=== PATIENT | male | born 1945 | race Caucasian/White ===

== ENCOUNTER 2019-09-10 16:21 | Inpatient (IN) | payer MEDICARE, OTHER ==
[~2019-09-10] VITALS: Ht 177.8 cm; Wt 196.0 kg
[2019-09-10 16:40] VITALS: BP 158/83
[2019-09-10] MEDS: INSULIN LISPRO 100 UNITS/ML SQ SCH (17:45)
[2019-09-10] MEDS ORDERED: DEXTROSE 50%-WATER 25 GM/50 ML SYRINGE IVP PRN (17:45)
[2019-09-10 18:33] VITALS: BP 137/75
[2019-09-10 18:52] LABS: GLUCOMETER DEV NAME(LOC) 2WR.1C; GLUCOSE,POINT OF CARE 52 MG/DL (70-110)
[2019-09-10 19:27] LABS: GLUCOMETER DEV NAME(LOC) 2WR.2; GLUCOSE,POINT OF CARE 158 MG/DL (70-110)
[2019-09-10] MEDS ORDERED: INSULIN GLARGINE,HUM.REC.ANLOG 100 UNITS/ML SQ SCH (21:30)
[2019-09-10] MEDS ORDERED: ACETAMINOPHEN 325 MG TABLET PO PRN (21:45)
[2019-09-10] MEDS: SENNA 187 MG TABLET PO SCH (21:45)
[2019-09-10] MEDS: DOCUSATE SODIUM 100 MG CAPSULE PO SCH (22:00)
[2019-09-10] MEDS: INSULIN LISPRO 100 UNITS/ML SQ PRN (22:08)
[2019-09-10] MEDS: TAMSULOSIN HCL 0.4 MG CAPSULE PO SCH (22:09)
[2019-09-10] MEDS: PREGABALIN 75 MG CAPSULE PO SCH (22:09)
[2019-09-10 22:15] LABS: GLUCOMETER DEV NAME(LOC) 2WR.1C; GLUCOSE,POINT OF CARE 239 MG/DL (70-110)
[2019-09-10] MEDS: EZETIMIBE 10 MG TABLET PO SCH (22:31)
[2019-09-11 04:20] VITALS: BP 120/62
[2019-09-11 06:09] LABS: GLUCOMETER DEV NAME(LOC) 2WR.1C; GLUCOSE,POINT OF CARE 111 MG/DL (70-110)
[2019-09-11 06:58] LABS: BASOPHILS % (AUTO) 0.9 % (0.0-2.0); EOSINOPHILS % (AUTO) 4.8 % (1.0-6.0); HEMATOCRIT 39.2 % (41-53); HEMOGLOBIN 13.2 g/dL (13.5-17.5); LYMPHOCYTES # (AUTO) 1.7 K/uL (1.0-4.8); LYMPHOCYTES % (AUTO) 30.7 % (22.0-44.0); MEAN CORPUSCULAR HEMOGLOBIN 30.4 pg (26.0-34.0); MEAN CORPUSCULAR HGB CONC 33.6 G/dL (31.0-37.0); MEAN CORPUSCULAR VOLUME 90 fL (80-100); MONOCYTES # (AUTO) 0.3 K/uL (0.1-1.0); MONOCYTES % (AUTO) 5.9 % (2.0-9.0); NEUTROPHILS # (AUTO) 3.1 K/uL (1.8-7.7); NEUTROPHILS % (AUTO) 57.7 % (40.0-70.0); PLATELET COUNT (AUTO) 195 K/uL (150-450); RED BLOOD CELL COUNT(AUTO) 4.34 MIL/uL (4.50-5.90); RED CELL DISTRIBUTION WIDTH 14.4 % (11.5-14.5)
[2019-09-11 07:07] VITALS: BP 125/73
[2019-09-11 07:13] LABS: ALANINE AMINOTRANSFERASE 221 U/L (12-78); ALKALINE PHOSPHATASE 84 U/L (46-116); ANION GAP 4 mmol/L (8-16); ASPARTATE AMINOTRANSFERASE 237 U/L (15-37); BILIRUBIN,TOTAL 0.4 mg/dL (0.1-1.0); CALCIUM, TOTAL 8.9 mg/dL (8.8-10.5); CARBON DIOXIDE 31 mmol/L (22-29); CHLORIDE 104 mmol/L (98-107); CREATININE 0.73 mg/dL (0.60-1.30); GLUCOSE,RANDOM 100 mg/dL (70-110); POTASSIUM 3.9 mmol/L (3.5-5.1); SODIUM SERUM 139 mmol/L (136-145); TOTAL PROTEIN, SERUM 6.5 g/dL (6.4-8.2); UREA NITROGEN, BLOOD 18 mg/dL (7-18)
[2019-09-11 07:14] LABS: GLOMERULAR FILTR. RATE CALC > 60 mL/min (>60)
[2019-09-11] MEDS: PREGABALIN 75 MG CAPSULE PO SCH ×2 (07:58→20:34)
[2019-09-11] MEDS: FLUDROCORTISONE ACETATE 0.1 MG TABLET PO SCH (07:59)
[2019-09-11] MEDS: MetFORMIN HCL 500 MG TABLET PO SCH ×2 (07:59→17:18)
[2019-09-11] MEDS: MIDODRINE HCL 5 MG TABLET PO SCH ×3 (07:59→20:35)
[2019-09-11] MEDS: ASPIRIN 81 MG CHEWABLE TABLET PO SCH (07:59)
[2019-09-11] MEDS: DOCUSATE SODIUM 100 MG CAPSULE PO SCH ×2 (07:59→20:34)
[2019-09-11] MEDS: FLUTICASONE PROPIONATE 50 MCG/SPRAY 16 GM NASAL SPRAY NASAL SCH (07:59)
[2019-09-11] MEDS: INSULIN LISPRO 100 UNITS/ML SQ SCH ×2 (08:07→17:26)
[2019-09-11] MEDS: FLUOCINONIDE 0.05% 15 GM CREAM TP SCH ×2 (08:07→20:55)
[2019-09-11] MEDS: DESONIDE 0.05% 15 GM CREAM TP SCH ×2 (08:08→20:33)
[2019-09-11] MEDS ORDERED: DOCUSATE SODIUM 100 MG/10 ML LIQUID UDCUP PO SCH (09:00)
[2019-09-11 12:19] LABS: GLUCOMETER DEV NAME(LOC) 2WR.2; GLUCOSE,POINT OF CARE 63 MG/DL (70-110)
[2019-09-11 12:47] LABS: GLUCOMETER DEV NAME(LOC) 2WR.2; GLUCOSE,POINT OF CARE 95 MG/DL (70-110)
[2019-09-11 16:00] VITALS: BP 118/63
[2019-09-11] MEDS: TAMSULOSIN HCL 0.4 MG CAPSULE PO SCH (20:33)
[2019-09-11] MEDS: INSULIN GLARGINE,HUM.REC.ANLOG 100 UNITS/ML SQ SCH (20:46)
[2019-09-11] MEDS: INSULIN LISPRO 100 UNITS/ML SQ PRN (20:54)
[2019-09-11] MEDS: SENNA 187 MG TABLET PO SCH (20:56)
[2019-09-11] MEDS: EZETIMIBE 10 MG TABLET PO SCH (20:56)
[2019-09-11 21:39] LABS: GLUCOMETER DEV NAME(LOC) 2WR.1C; GLUCOSE,POINT OF CARE 134 MG/DL (70-110)
[2019-09-11 21:45] LABS: GLUCOMETER DEV NAME(LOC) 2WR.2; GLUCOSE,POINT OF CARE 224 MG/DL (70-110)
[2019-09-11 23:44] VITALS: BP 120/63
[2019-09-12 06:26] LABS: GLUCOMETER DEV NAME(LOC) 2WR.1C; GLUCOSE,POINT OF CARE 110 MG/DL (70-110)
[2019-09-12] MEDS: MetFORMIN HCL 500 MG TABLET PO SCH ×2 (07:49→17:09)
[2019-09-12] MEDS: INSULIN LISPRO 100 UNITS/ML SQ SCH ×3 (07:54→17:44)
[2019-09-12 07:57] VITALS: BP 147/66
[2019-09-12] MEDS: MIDODRINE HCL 5 MG TABLET PO SCH ×3 (08:29→20:15)
[2019-09-12] MEDS: ASPIRIN 81 MG CHEWABLE TABLET PO SCH (08:29)
[2019-09-12] MEDS: FLUDROCORTISONE ACETATE 0.1 MG TABLET PO SCH (08:29)
[2019-09-12] MEDS: FLUTICASONE PROPIONATE 50 MCG/SPRAY 16 GM NASAL SPRAY NASAL SCH (08:30)
[2019-09-12] MEDS: PREGABALIN 75 MG CAPSULE PO SCH ×2 (08:30→20:14)
[2019-09-12] MEDS: DOCUSATE SODIUM 100 MG CAPSULE PO SCH ×3 (08:32→20:27)
[2019-09-12] MEDS: FLUOCINONIDE 0.05% 15 GM CREAM TP SCH ×2 (08:35→20:15)
[2019-09-12] MEDS: DESONIDE 0.05% 15 GM CREAM TP SCH ×2 (08:35→20:15)
[2019-09-12] MEDS ORDERED: FLUT16H NASAL (13:46)
[2019-09-12] MEDS ORDERED: LISI-662 PO (13:46)
[2019-09-12] MEDS ORDERED: METF-960 PO (13:46)
[2019-09-12] MEDS ORDERED: PREG75 PO (13:46)
[2019-09-12 15:38] VITALS: BP 117/64
[2019-09-12 16:31] LABS: GLUCOMETER DEV NAME(LOC) 2WR.1C; GLUCOSE,POINT OF CARE 86 MG/DL (70-110)
[2019-09-12 18:37] LABS: GLUCOMETER DEV NAME(LOC) 2WR.1C; GLUCOSE,POINT OF CARE 107 MG/DL (70-110)
[2019-09-12] MEDS: TAMSULOSIN HCL 0.4 MG CAPSULE PO SCH (20:14)
[2019-09-12] MEDS: SENNA 187 MG TABLET PO SCH ×2 (20:15→20:28)
[2019-09-12] MEDS: EZETIMIBE 10 MG TABLET PO SCH (20:15)
[2019-09-12] MEDS: INSULIN LISPRO 100 UNITS/ML SQ PRN (20:17)
[2019-09-12] MEDS: INSULIN GLARGINE,HUM.REC.ANLOG 100 UNITS/ML SQ SCH (20:18)
[2019-09-12 20:30] VITALS: BP 136/69
[2019-09-12] MEDS: MELATONIN 3 MG TABLET PO PRN (21:08)
[2019-09-12 22:57] LABS: GLUCOMETER DEV NAME(LOC) 2WR.1C; GLUCOSE,POINT OF CARE 168 MG/DL (70-110)
[2019-09-13 00:14] VITALS: BP 119/69
[2019-09-13 06:30] LABS: GLUCOMETER DEV NAME(LOC) 2WR.2; GLUCOSE,POINT OF CARE 76 MG/DL (70-110)
[2019-09-13] MEDS: INSULIN LISPRO 100 UNITS/ML SQ SCH ×3 (07:00→18:29)
[2019-09-13 07:25] VITALS: BP 115/72
[2019-09-13] MEDS: PREGABALIN 75 MG CAPSULE PO SCH ×2 (07:50→20:14)
[2019-09-13] MEDS: ASPIRIN 81 MG CHEWABLE TABLET PO SCH (07:50)
[2019-09-13] MEDS: MetFORMIN HCL 500 MG TABLET PO SCH ×2 (07:50→16:56)
[2019-09-13] MEDS: DOCUSATE SODIUM 100 MG CAPSULE PO SCH ×2 (07:50→20:14)
[2019-09-13] MEDS: MIDODRINE HCL 5 MG TABLET PO SCH ×3 (07:51→20:14)
[2019-09-13] MEDS: FLUTICASONE PROPIONATE 50 MCG/SPRAY 16 GM NASAL SPRAY NASAL SCH (07:51)
[2019-09-13] MEDS: FLUDROCORTISONE ACETATE 0.1 MG TABLET PO SCH (07:52)
[2019-09-13] MEDS: FLUOCINONIDE 0.05% 15 GM CREAM TP SCH ×2 (07:52→20:14)
[2019-09-13] MEDS: DESONIDE 0.05% 15 GM CREAM TP SCH ×2 (07:52→20:14)
[2019-09-13 15:43] VITALS: BP 137/72
[2019-09-13 17:31] LABS: GLUCOMETER DEV NAME(LOC) 2WR.1C; GLUCOSE,POINT OF CARE 121 MG/DL (70-110)
[2019-09-13 17:40] LABS: GLUCOMETER DEV NAME(LOC) 2WR.2; GLUCOSE,POINT OF CARE 87 MG/DL (70-110)
[2019-09-13] MEDS: EZETIMIBE 10 MG TABLET PO SCH (20:14)
[2019-09-13] MEDS: TAMSULOSIN HCL 0.4 MG CAPSULE PO SCH (20:14)
[2019-09-13] MEDS: SENNA 187 MG TABLET PO SCH (20:14)
[2019-09-13] MEDS: MELATONIN 3 MG TABLET PO PRN (20:16)
[2019-09-13] MEDS: INSULIN GLARGINE,HUM.REC.ANLOG 100 UNITS/ML SQ SCH (20:22)
[2019-09-13 22:19] LABS: GLUCOMETER DEV NAME(LOC) 2WR.2; GLUCOSE,POINT OF CARE 92 MG/DL (70-110)
[2019-09-14 04:00] VITALS: BP 136/67
[2019-09-14 07:07] LABS: GLUCOMETER DEV NAME(LOC) 2WR.2; GLUCOSE,POINT OF CARE 64 MG/DL (70-110)
[2019-09-14 07:07] LABS: GLUCOMETER DEV NAME(LOC) 2WR.2; GLUCOSE,POINT OF CARE 53 MG/DL (70-110)
[2019-09-14 07:07] LABS: GLUCOMETER DEV NAME(LOC) 2WR.2; GLUCOSE,POINT OF CARE 62 MG/DL (70-110)
[2019-09-14] MEDS: FLUDROCORTISONE ACETATE 0.1 MG TABLET PO SCH (08:09)
[2019-09-14] MEDS: DESONIDE 0.05% 15 GM CREAM TP SCH ×2 (08:09→20:49)
[2019-09-14] MEDS: MetFORMIN HCL 500 MG TABLET PO SCH ×2 (08:09→17:05)
[2019-09-14] MEDS: FLUTICASONE PROPIONATE 50 MCG/SPRAY 16 GM NASAL SPRAY NASAL SCH (08:09)
[2019-09-14] MEDS: FLUOCINONIDE 0.05% 15 GM CREAM TP SCH ×2 (08:09→20:49)
[2019-09-14] MEDS: DOCUSATE SODIUM 100 MG CAPSULE PO SCH ×2 (08:10→20:49)
[2019-09-14] MEDS: MIDODRINE HCL 5 MG TABLET PO SCH ×4 (08:10→20:49)
[2019-09-14] MEDS: ASPIRIN 81 MG CHEWABLE TABLET PO SCH (08:10)
[2019-09-14] MEDS: PREGABALIN 75 MG CAPSULE PO SCH ×2 (08:10→20:44)
[2019-09-14] MEDS: INSULIN LISPRO 100 UNITS/ML SQ SCH ×2 (08:31→18:02)
[2019-09-14] MEDS: INSULIN LISPRO 100 UNITS/ML SQ PRN ×3 (08:31→20:49)
[2019-09-14 09:00] VITALS: BP 129/60
[2019-09-14 13:19] LABS: GLUCOMETER DEV NAME(LOC) 2WR.2; GLUCOSE,POINT OF CARE 180 MG/DL (70-110)
[2019-09-14 13:19] LABS: GLUCOMETER DEV NAME(LOC) 2WR.2; GLUCOSE,POINT OF CARE 103 MG/DL (70-110)
[2019-09-14 15:58] VITALS: BP 131/73
[2019-09-14 17:57] LABS: GLUCOMETER DEV NAME(LOC) 2WR.1C; GLUCOSE,POINT OF CARE 189 MG/DL (70-110)
[2019-09-14 20:30] VITALS: BP 130/77
[2019-09-14] MEDS: EZETIMIBE 10 MG TABLET PO SCH (20:44)
[2019-09-14] MEDS: MELATONIN 3 MG TABLET PO PRN (20:44)
[2019-09-14] MEDS: TAMSULOSIN HCL 0.4 MG CAPSULE PO SCH (20:45)
[2019-09-14] MEDS: INSULIN GLARGINE,HUM.REC.ANLOG 100 UNITS/ML SQ SCH (20:48)
[2019-09-14] MEDS: SENNA 187 MG TABLET PO SCH (20:49)
[2019-09-15 01:10] VITALS: BP 112/69
[2019-09-15 05:46] LABS: GLUCOMETER DEV NAME(LOC) 2WR.1C; GLUCOSE,POINT OF CARE 179 MG/DL (70-110)
[2019-09-15 05:52] LABS: GLUCOMETER DEV NAME(LOC) 2WR.1C; GLUCOSE,POINT OF CARE 75 MG/DL (70-110)
[2019-09-15 07:46] VITALS: BP 138/76
[2019-09-15] MEDS: MetFORMIN HCL 500 MG TABLET PO SCH ×2 (07:57→18:13)
[2019-09-15] MEDS: ASPIRIN 81 MG CHEWABLE TABLET PO SCH (07:57)
[2019-09-15] MEDS: PREGABALIN 75 MG CAPSULE PO SCH ×2 (07:57→20:36)
[2019-09-15] MEDS: FLUTICASONE PROPIONATE 50 MCG/SPRAY 16 GM NASAL SPRAY NASAL SCH (07:57)
[2019-09-15] MEDS: FLUDROCORTISONE ACETATE 0.1 MG TABLET PO SCH (07:58)
[2019-09-15] MEDS: INSULIN LISPRO 100 UNITS/ML SQ SCH ×3 (08:02→16:30)
[2019-09-15] MEDS: DOCUSATE SODIUM 100 MG CAPSULE PO SCH ×2 (08:03→21:00)
[2019-09-15] MEDS: FLUOCINONIDE 0.05% 15 GM CREAM TP SCH ×2 (08:04→21:00)
[2019-09-15] MEDS: DESONIDE 0.05% 15 GM CREAM TP SCH ×2 (08:04→21:00)
[2019-09-15] MEDS: MIDODRINE HCL 5 MG TABLET PO SCH ×3 (09:00→21:00)
[2019-09-15 10:30] VITALS: BP 124/73
[2019-09-15 12:51] LABS: GLUCOMETER DEV NAME(LOC) 2WR.2; GLUCOSE,POINT OF CARE 103 MG/DL (70-110)
[2019-09-15 16:58] VITALS: BP 130/78
[2019-09-15 20:00] LABS: GLUCOMETER DEV NAME(LOC) 2WR.2; GLUCOSE,POINT OF CARE 55 MG/DL (70-110)
[2019-09-15 20:00] LABS: GLUCOMETER DEV NAME(LOC) 2WR.2; GLUCOSE,POINT OF CARE 157 MG/DL (70-110)
[2019-09-15 20:00] LABS: GLUCOMETER DEV NAME(LOC) 2WR.2; GLUCOSE,POINT OF CARE 54 MG/DL (70-110)
[2019-09-15] MEDS: TAMSULOSIN HCL 0.4 MG CAPSULE PO SCH (20:35)
[2019-09-15] MEDS: EZETIMIBE 10 MG TABLET PO SCH (20:36)
[2019-09-15] MEDS: SENNA 187 MG TABLET PO SCH (21:00)
[2019-09-15] MEDS: INSULIN GLARGINE,HUM.REC.ANLOG 100 UNITS/ML SQ SCH (21:02)
[2019-09-15 21:43] LABS: GLUCOMETER DEV NAME(LOC) 2WR.2; GLUCOSE,POINT OF CARE 125 MG/DL (70-110)
[2019-09-16] VITALS: BP 128/71
[2019-09-16 07:02] LABS: GLUCOMETER DEV NAME(LOC) 2WR.2; GLUCOSE,POINT OF CARE 69 MG/DL (70-110)
[2019-09-16 07:38] VITALS: BP 121/71
[2019-09-16] MEDS: FLUTICASONE PROPIONATE 50 MCG/SPRAY 16 GM NASAL SPRAY NASAL SCH (08:14)
[2019-09-16] MEDS: MetFORMIN HCL 500 MG TABLET PO SCH ×2 (08:15→17:09)
[2019-09-16] MEDS: MIDODRINE HCL 5 MG TABLET PO SCH (08:15)
[2019-09-16] MEDS: DOCUSATE SODIUM 100 MG CAPSULE PO SCH ×2 (08:15→20:58)
[2019-09-16] MEDS: PREGABALIN 75 MG CAPSULE PO SCH ×2 (08:15→20:54)
[2019-09-16] MEDS: FLUDROCORTISONE ACETATE 0.1 MG TABLET PO SCH (08:15)
[2019-09-16] MEDS: ASPIRIN 81 MG CHEWABLE TABLET PO SCH (08:16)
[2019-09-16] MEDS: DESONIDE 0.05% 15 GM CREAM TP SCH (08:19)
[2019-09-16] MEDS: INSULIN LISPRO 100 UNITS/ML SQ SCH ×3 (08:19→18:15)
[2019-09-16] MEDS: FLUOCINONIDE 0.05% 15 GM CREAM TP SCH (08:19)
[2019-09-16 12:20] LABS: GLUCOMETER DEV NAME(LOC) 2WR.2; GLUCOSE,POINT OF CARE 54 MG/DL (70-110)
[2019-09-16 12:20] LABS: GLUCOMETER DEV NAME(LOC) 2WR.2; GLUCOSE,POINT OF CARE 40 MG/DL (70-110)
[2019-09-16 13:22] LABS: GLUCOMETER DEV NAME(LOC) 2WR.2; GLUCOSE,POINT OF CARE 94 MG/DL (70-110)
[2019-09-16] MEDS ORDERED: MIDODRINE HCL 5 MG TABLET PO PRN (13:45)
[2019-09-16] MEDS ORDERED: FLUOCINONIDE 0.05% 15 GM CREAM TP PRN (13:45)
[2019-09-16] MEDS ORDERED: DESONIDE 0.05% 15 GM CREAM TP PRN (13:45)
[2019-09-16 15:20] VITALS: BP 143/79
[2019-09-16 17:43] LABS: GLUCOMETER DEV NAME(LOC) 2WR.2; GLUCOSE,POINT OF CARE 151 MG/DL (70-110)
[2019-09-16] MEDS: TAMSULOSIN HCL 0.4 MG CAPSULE PO SCH (20:54)
[2019-09-16] MEDS: EZETIMIBE 10 MG TABLET PO SCH (20:54)
[2019-09-16] MEDS: SENNA 187 MG TABLET PO SCH (20:58)
[2019-09-16] MEDS: INSULIN GLARGINE,HUM.REC.ANLOG 100 UNITS/ML SQ SCH (21:01)
[2019-09-16] MEDS ORDERED: DOCUSATE SODIUM 100 MG CAPSULE PO PRN (21:15)
[2019-09-16] MEDS ORDERED: SENNA 187 MG TABLET PO PRN (21:15)
[2019-09-16 21:51] LABS: GLUCOMETER DEV NAME(LOC) 2WR.2; GLUCOSE,POINT OF CARE 76 MG/DL (70-110)
[2019-09-16] MEDS: MELATONIN 3 MG TABLET PO PRN (22:21)
[2019-09-17 05:31] VITALS: BP 128/71
[2019-09-17 06:23] LABS: GLUCOMETER DEV NAME(LOC) 2WR.1C; GLUCOSE,POINT OF CARE 76 MG/DL (70-110)
[2019-09-17 07:12] VITALS: BP 122/78
[2019-09-17] MEDS: ASPIRIN 81 MG CHEWABLE TABLET PO SCH (07:48)
[2019-09-17] MEDS: FLUDROCORTISONE ACETATE 0.1 MG TABLET PO SCH (07:48)
[2019-09-17] MEDS: MetFORMIN HCL 500 MG TABLET PO SCH ×2 (07:48→17:20)
[2019-09-17] MEDS: FLUTICASONE PROPIONATE 50 MCG/SPRAY 16 GM NASAL SPRAY NASAL SCH (07:48)
[2019-09-17] MEDS: PREGABALIN 75 MG CAPSULE PO SCH ×2 (07:48→20:18)
[2019-09-17] MEDS: INSULIN LISPRO 100 UNITS/ML SQ SCH ×2 (07:51→16:30)
[2019-09-17] MEDS ORDERED: KETOCONAZOLE 2% 120 ML SHAMPOO TP SCH (09:00)
[2019-09-17 12:45] LABS: GLUCOMETER DEV NAME(LOC) 2WR.2; GLUCOSE,POINT OF CARE 61 MG/DL (70-110)
[2019-09-17] MEDS ORDERED: INSULIN LISPRO 100 UNITS/ML SQ ONE (13:15)
[2019-09-17 14:09] LABS: GLUCOMETER DEV NAME(LOC) 2WR.2; GLUCOSE,POINT OF CARE 64 MG/DL (70-110)
[2019-09-17 14:47] LABS: GLUCOMETER DEV NAME(LOC) 2WR.2; GLUCOSE,POINT OF CARE 86 MG/DL (70-110)
[2019-09-17 15:18] VITALS: BP 134/71
[2019-09-17 17:04] LABS: GLUCOMETER DEV NAME(LOC) 2WR.2; GLUCOSE,POINT OF CARE 63 MG/DL (70-110)
[2019-09-17 19:29] LABS: GLUCOMETER DEV NAME(LOC) 2WR.1C; GLUCOSE,POINT OF CARE 84 MG/DL (70-110)
[2019-09-17] MEDS: EZETIMIBE 10 MG TABLET PO SCH (20:18)
[2019-09-17] MEDS: MELATONIN 3 MG TABLET PO PRN (20:18)
[2019-09-17] MEDS: TAMSULOSIN HCL 0.4 MG CAPSULE PO SCH (20:18)
[2019-09-17] MEDS: INSULIN GLARGINE,HUM.REC.ANLOG 100 UNITS/ML SQ SCH (20:21)
[2019-09-17] MEDS: INSULIN LISPRO 100 UNITS/ML SQ PRN (20:23)
[2019-09-17 22:45] LABS: GLUCOMETER DEV NAME(LOC) 2WR.2; GLUCOSE,POINT OF CARE 159 MG/DL (70-110)
[2019-09-18] VITALS: BP 121/66
[2019-09-18 06:38] LABS: GLUCOMETER DEV NAME(LOC) 2WR.1C; GLUCOSE,POINT OF CARE 76 MG/DL (70-110)
[2019-09-18 06:38] LABS: GLUCOMETER DEV NAME(LOC) 2WR.1C; GLUCOSE,POINT OF CARE 61 MG/DL (70-110)
[2019-09-18] MEDS: INSULIN LISPRO 100 UNITS/ML SQ SCH ×2 (07:00→11:30)
[2019-09-18 07:15] VITALS: BP 112/73
[2019-09-18] MEDS: MetFORMIN HCL 500 MG TABLET PO SCH ×2 (08:04→18:11)
[2019-09-18] MEDS: PREGABALIN 75 MG CAPSULE PO SCH ×2 (08:04→20:23)
[2019-09-18] MEDS: FLUDROCORTISONE ACETATE 0.1 MG TABLET PO SCH (08:05)
[2019-09-18] MEDS: ASPIRIN 81 MG CHEWABLE TABLET PO SCH (08:05)
[2019-09-18] MEDS: FLUTICASONE PROPIONATE 50 MCG/SPRAY 16 GM NASAL SPRAY NASAL SCH (08:22)
[2019-09-18 12:05] LABS: GLUCOMETER DEV NAME(LOC) 2WR.1C; GLUCOSE,POINT OF CARE 100 MG/DL (70-110)
[2019-09-18 15:34] VITALS: BP 137/74
[2019-09-18 18:57] LABS: GLUCOMETER DEV NAME(LOC) 2WR.1C; GLUCOSE,POINT OF CARE 206 MG/DL (70-110)
[2019-09-18] MEDS: TAMSULOSIN HCL 0.4 MG CAPSULE PO SCH (20:23)
[2019-09-18] MEDS: EZETIMIBE 10 MG TABLET PO SCH (20:23)
[2019-09-18] MEDS: INSULIN GLARGINE,HUM.REC.ANLOG 100 UNITS/ML SQ SCH (20:25)
[2019-09-18] MEDS: INSULIN LISPRO 100 UNITS/ML SQ PRN (20:30)
[2019-09-18 21:10] LABS: GLUCOMETER DEV NAME(LOC) 2WR.1C; GLUCOSE,POINT OF CARE 239 MG/DL (70-110)
[2019-09-19] VITALS: BP 122/71
[2019-09-19 05:48] LABS: GLUCOMETER DEV NAME(LOC) 2WR.2; GLUCOSE,POINT OF CARE 60 MG/DL (70-110)
[2019-09-19 06:00] LABS: GLUCOMETER DEV NAME(LOC) 2WR.2; GLUCOSE,POINT OF CARE 77 MG/DL (70-110)
[2019-09-19 07:20] VITALS: BP 115/71
[2019-09-19] MEDS: ASPIRIN 81 MG CHEWABLE TABLET PO SCH (07:59)
[2019-09-19] MEDS: FLUTICASONE PROPIONATE 50 MCG/SPRAY 16 GM NASAL SPRAY NASAL SCH (07:59)
[2019-09-19] MEDS: FLUDROCORTISONE ACETATE 0.1 MG TABLET PO SCH (07:59)
[2019-09-19] MEDS: MetFORMIN HCL 500 MG TABLET PO SCH ×2 (07:59→17:13)
[2019-09-19] MEDS: PREGABALIN 75 MG CAPSULE PO SCH ×2 (07:59→20:10)
[2019-09-19 15:13] VITALS: BP 126/74
[2019-09-19 16:57] LABS: GLUCOMETER DEV NAME(LOC) 2WR.2; GLUCOSE,POINT OF CARE 147 MG/DL (70-110)
[2019-09-19 16:58] LABS: GLUCOMETER DEV NAME(LOC) 2WR.1C; GLUCOSE,POINT OF CARE 122 MG/DL (70-110)
[2019-09-19] MEDS: INSULIN LISPRO 100 UNITS/ML SQ PRN (17:19)
[2019-09-19] MEDS: TAMSULOSIN HCL 0.4 MG CAPSULE PO SCH (20:10)
[2019-09-19] MEDS: EZETIMIBE 10 MG TABLET PO SCH (20:11)
[2019-09-19] MEDS: INSULIN GLARGINE,HUM.REC.ANLOG 100 UNITS/ML SQ SCH (20:17)
[2019-09-19 20:49] LABS: GLUCOMETER DEV NAME(LOC) 2WR.1C; GLUCOSE,POINT OF CARE 122 MG/DL (70-110)
[2019-09-19 23:30] VITALS: BP 109/61
[2019-09-20 05:46] LABS: GLUCOMETER DEV NAME(LOC) 2WR.2; GLUCOSE,POINT OF CARE 74 MG/DL (70-110)
[2019-09-20 07:03] VITALS: BP 115/74
[2019-09-20] MEDS: FLUDROCORTISONE ACETATE 0.1 MG TABLET PO SCH (08:17)
[2019-09-20] MEDS: FLUTICASONE PROPIONATE 50 MCG/SPRAY 16 GM NASAL SPRAY NASAL SCH (08:17)
[2019-09-20] MEDS: MetFORMIN HCL 500 MG TABLET PO SCH ×2 (08:17→16:47)
[2019-09-20] MEDS: PREGABALIN 75 MG CAPSULE PO SCH ×2 (08:18→20:37)
[2019-09-20] MEDS: ASPIRIN 81 MG CHEWABLE TABLET PO SCH (08:18)
[2019-09-20 14:37] LABS: GLUCOMETER DEV NAME(LOC) 2WR.1C; GLUCOSE,POINT OF CARE 75 MG/DL (70-110)
[2019-09-20 15:35] VITALS: BP 130/72
[2019-09-20 18:36] LABS: GLUCOMETER DEV NAME(LOC) 2WR.2; GLUCOSE,POINT OF CARE 120 MG/DL (70-110)
[2019-09-20] MEDS: EZETIMIBE 10 MG TABLET PO SCH (20:36)
[2019-09-20] MEDS: TAMSULOSIN HCL 0.4 MG CAPSULE PO SCH (20:37)
[2019-09-20] MEDS: INSULIN GLARGINE,HUM.REC.ANLOG 100 UNITS/ML SQ SCH (20:39)
[2019-09-20] MEDS: INSULIN LISPRO 100 UNITS/ML SQ PRN (20:40)
[2019-09-20 22:07] LABS: GLUCOMETER DEV NAME(LOC) 2WR.1C; GLUCOSE,POINT OF CARE 153 MG/DL (70-110)
[2019-09-21 02:35] VITALS: BP 129/72
[2019-09-21 05:55] LABS: GLUCOMETER DEV NAME(LOC) 2WR.2; GLUCOSE,POINT OF CARE 64 MG/DL (70-110)
[2019-09-21 06:37] LABS: GLUCOMETER DEV NAME(LOC) 2WR.2; GLUCOSE,POINT OF CARE 164 MG/DL (70-110)
[2019-09-21 07:26] VITALS: BP 117/58
[2019-09-21] MEDS: MetFORMIN HCL 500 MG TABLET PO SCH ×2 (07:40→18:29)
[2019-09-21] MEDS: FLUDROCORTISONE ACETATE 0.1 MG TABLET PO SCH (07:40)
[2019-09-21] MEDS: FLUTICASONE PROPIONATE 50 MCG/SPRAY 16 GM NASAL SPRAY NASAL SCH (07:40)
[2019-09-21] MEDS: PREGABALIN 75 MG CAPSULE PO SCH ×2 (07:40→20:02)
[2019-09-21] MEDS: ASPIRIN 81 MG CHEWABLE TABLET PO SCH (07:41)
[2019-09-21] MEDS: INSULIN LISPRO 100 UNITS/ML SQ PRN ×2 (07:43→20:48)
[2019-09-21 13:15] LABS: GLUCOMETER DEV NAME(LOC) 2WR.2; GLUCOSE,POINT OF CARE 71 MG/DL (70-110)
[2019-09-21 15:54] LABS: GLUCOMETER DEV NAME(LOC) 2WR.1C; GLUCOSE,POINT OF CARE 58 MG/DL (70-110)
[2019-09-21 18:35] VITALS: BP 121/62
[2019-09-21] MEDS: EZETIMIBE 10 MG TABLET PO SCH (20:01)
[2019-09-21] MEDS: TAMSULOSIN HCL 0.4 MG CAPSULE PO SCH (20:02)
[2019-09-21] MEDS: INSULIN GLARGINE,HUM.REC.ANLOG 100 UNITS/ML SQ SCH (20:46)
[2019-09-21 21:04] LABS: GLUCOMETER DEV NAME(LOC) 2WR.1C; GLUCOSE,POINT OF CARE 82 MG/DL (70-110)
[2019-09-22 05:30] VITALS: BP 127/72
[2019-09-22 05:57] LABS: GLUCOMETER DEV NAME(LOC) 2WR.1C; GLUCOSE,POINT OF CARE 61 MG/DL (70-110)
[2019-09-22 06:43] LABS: GLUCOMETER DEV NAME(LOC) 2WR.2; GLUCOSE,POINT OF CARE 112 MG/DL (70-110)
[2019-09-22 07:28] VITALS: BP 125/74
[2019-09-22] MEDS: MetFORMIN HCL 500 MG TABLET PO SCH ×2 (07:39→17:05)
[2019-09-22] MEDS: FLUTICASONE PROPIONATE 50 MCG/SPRAY 16 GM NASAL SPRAY NASAL SCH (07:40)
[2019-09-22] MEDS: PREGABALIN 75 MG CAPSULE PO SCH ×2 (07:40→20:43)
[2019-09-22] MEDS: ASPIRIN 81 MG CHEWABLE TABLET PO SCH (07:41)
[2019-09-22] MEDS: FLUDROCORTISONE ACETATE 0.1 MG TABLET PO SCH (07:41)
[2019-09-22 13:51] LABS: GLUCOMETER DEV NAME(LOC) 2WR.2; GLUCOSE,POINT OF CARE 70 MG/DL (70-110)
[2019-09-22 15:07] VITALS: BP 142/69
[2019-09-22 18:06] LABS: GLUCOMETER DEV NAME(LOC) 2WR.2; GLUCOSE,POINT OF CARE 108 MG/DL (70-110)
[2019-09-22] MEDS: EZETIMIBE 10 MG TABLET PO SCH (20:43)
[2019-09-22] MEDS: TAMSULOSIN HCL 0.4 MG CAPSULE PO SCH (20:43)
[2019-09-22 20:56] LABS: GLUCOMETER DEV NAME(LOC) 2WR.1C; GLUCOSE,POINT OF CARE 126 MG/DL (70-110)
[2019-09-22] MEDS ORDERED: INSULIN GLARGINE,HUM.REC.ANLOG 100 UNITS/ML SQ SCH (21:00)
[2019-09-22 23:00] VITALS: BP 132/74
[2019-09-23 06:55] LABS: GLUCOMETER DEV NAME(LOC) 2WR.2; GLUCOSE,POINT OF CARE 56 MG/DL (70-110)
[2019-09-23 06:55] LABS: GLUCOMETER DEV NAME(LOC) 2WR.2; GLUCOSE,POINT OF CARE 98 MG/DL (70-110)
[2019-09-23 07:41] VITALS: BP 121/54
[2019-09-23] MEDS: MetFORMIN HCL 500 MG TABLET PO SCH ×2 (07:44→17:01)
[2019-09-23] MEDS: FLUDROCORTISONE ACETATE 0.1 MG TABLET PO SCH (10:23)
[2019-09-23] MEDS: PREGABALIN 75 MG CAPSULE PO SCH ×2 (10:23→20:59)
[2019-09-23] MEDS: ASPIRIN 81 MG CHEWABLE TABLET PO SCH (10:23)
[2019-09-23] MEDS: FLUTICASONE PROPIONATE 50 MCG/SPRAY 16 GM NASAL SPRAY NASAL SCH (10:24)
[2019-09-23 11:46] LABS: ANION GAP 12 mmol/L (8-16); CALCIUM, TOTAL 9.4 mg/dL (8.8-10.5); CARBON DIOXIDE 27 mmol/L (22-29); CHLORIDE 103 mmol/L (98-107); CREATININE 0.68 mg/dL (0.60-1.30); GLUCOSE,RANDOM 73 mg/dL (70-110); POTASSIUM 4.4 mmol/L (3.5-5.1); SODIUM SERUM 142 mmol/L (136-145); UREA NITROGEN, BLOOD 18 mg/dL (7-18)
[2019-09-23 11:49] LABS: GLOMERULAR FILTR. RATE CALC > 60 mL/min (>60)
[2019-09-23 13:53] LABS: GLUCOMETER DEV NAME(LOC) 2WR.2; GLUCOSE,POINT OF CARE 97 MG/DL (70-110)
[2019-09-23 15:34] VITALS: BP 136/75
[2019-09-23 16:33] LABS: GLUCOMETER DEV NAME(LOC) 2WR.1C; GLUCOSE,POINT OF CARE 60 MG/DL (70-110)
[2019-09-23 18:43] LABS: GLUCOMETER DEV NAME(LOC) 2WR.1C; GLUCOSE,POINT OF CARE 101 MG/DL (70-110)
[2019-09-23] MEDS ORDERED: INSU100V SQ (19:04)
[2019-09-23] MEDS ORDERED: EZET10TA13 PO (19:04)
[2019-09-23] MEDS ORDERED: INSLAN SQ (19:04)
[2019-09-23] MEDS ORDERED: FLUD.1 PO (19:04)
[2019-09-23] MEDS ORDERED: TAMS-13 PO (19:04)
[2019-09-23] MEDS ORDERED: ASPI81 PO (19:04)
[2019-09-23] MEDS: EZETIMIBE 10 MG TABLET PO SCH (20:59)
[2019-09-23] MEDS: TAMSULOSIN HCL 0.4 MG CAPSULE PO SCH (20:59)
[2019-09-23] MEDS ORDERED: INSULIN GLARGINE,HUM.REC.ANLOG 100 UNITS/ML SQ SCH (21:00)
[2019-09-23 21:40] LABS: GLUCOMETER DEV NAME(LOC) 2WR.2; GLUCOSE,POINT OF CARE 81 MG/DL (70-110)
[2019-09-24 02:01] VITALS: BP 126/64
[2019-09-24 06:03] LABS: GLUCOMETER DEV NAME(LOC) 2WR.2; GLUCOSE,POINT OF CARE 86 MG/DL (70-110)
[2019-09-24 08:00] VITALS: BP 114/78
[2019-09-24] MEDS: FLUTICASONE PROPIONATE 50 MCG/SPRAY 16 GM NASAL SPRAY NASAL SCH (08:50)
[2019-09-24] MEDS: PREGABALIN 75 MG CAPSULE PO SCH (08:51)
[2019-09-24] MEDS: MetFORMIN HCL 500 MG TABLET PO SCH (08:51)
[2019-09-24] MEDS: ASPIRIN 81 MG CHEWABLE TABLET PO SCH (08:51)
[2019-09-24] MEDS: FLUDROCORTISONE ACETATE 0.1 MG TABLET PO SCH (08:51)
[2019-09-24] MEDS ORDERED: KETOCONAZOLE 2% 120 ML SHAMPOO TP PRN (09:00)
[2019-09-24 18:04] LABS: GLUCOMETER DEV NAME(LOC) 2WR.2; GLUCOSE,POINT OF CARE 80 MG/DL (70-110)
== END 2019-09-24 13:00 | disposition home or self-care (01) | DRG 56 ==
LOC: 2WR 16:37
DX: I69.354 Hemiplegia and hemiparesis following cerebral infarction affecting left non-dominant side (principal); I63.9 Cerebral infarction, unspecified; N13.8 Other obstructive and reflux uropathy; E46 Unspecified protein-calorie malnutrition; Z68.44 Body mass index [BMI] 60.0-69.9, adult; E11.42 Type 2 diabetes mellitus with diabetic polyneuropathy; E66.9 Obesity, unspecified; E78.5 Hyperlipidemia, unspecified; E88.89 Other specified metabolic disorders; F43.10 Post-traumatic stress disorder, unspecified; G31.84 Mild cognitive impairment of uncertain or unknown etiology; G72.89 Other specified myopathies; I10 Essential (primary) hypertension; I45.10 Unspecified right bundle-branch block; N40.1 Benign prostatic hyperplasia with lower urinary tract symptoms; Z83.3 Family history of diabetes mellitus; Z79.82 Long term (current) use of aspirin; Z79.4 Long term (current) use of insulin; Z79.899 Other long term (current) drug therapy; E78.00 Pure hypercholesterolemia, unspecified; G47.00 Insomnia, unspecified; K59.00 Constipation, unspecified; N31.9 Neuromuscular dysfunction of bladder, unspecified; I95.9 Hypotension, unspecified; M54.9 Dorsalgia, unspecified
CPT/HCPCS: 83036; 87081; 92507; 92523; 92526; 93970; 97110; 97112; 97116; 97150; 97163; 97166; 97530; 97535; 99366; J1815